=== PATIENT | female | born 1970 | race Hispanic/Latino ===

== ENCOUNTER 2016-05-05 13:47 | Emergency (ER) | payer OTHER ==
[2016-05-05 14:22] VITALS: BMI 42.7
[2016-05-05 14:26] VITALS: TEMP 97.9; O2SAT 98
[2016-05-05] MEDS ORDERED: Sodium Chloride 0.9% 1,000 ML IV STA (14:43)
--- NOTE | 2016-05-05 14:53 | ED PDOC ---
Arrival/HPI - General Chief Complaint: Dizziness/Lightheaded Time Seen by Provider: 05/05/16 14:33 Historian: Patient - History of Present Illness Narrative History of Present Illness (Text): 05/05/16 14:51 45yo female with no PMHX present with complaint of positional dizziness x4days. States dizziness is usually with flexion of her head, or when she suddenly turn laterally while laying down. she admits to tinnitus few days that resolved. States she recently had URI symptoms that resolved. +Nausea. Denies fever, chills, chest pain, SOB, focal weakness, vomiting, diarrhea, diaphoresis, LE edema, calf pain, any other complaint. Past Medical History - Provider Review Nursing Documentation Reviewed: Yes - Infectious Disease Hx of Infectious Diseases: None - Cardiac Hx Cardiac Disorders: No - Pulmonary Hx Respiratory Disorders: No - Neurological Hx Neurological Disorder: No - HEENT Hx HEENT Disorder: No - Renal Hx Renal Disorder: No - Endocrine/Metabolic Hx Endocrine Disorders: No - Hematological/Oncological Hx Blood Transfusions: No - Integumentary Hx Dermatological Disorder: No - Musculoskeletal/Rheumatological Hx Falls: No - Gastrointestinal Hx Gastrointestinal Disorders: Yes Hx Gall Bladder Disease: Yes (GALLSTONES) - Genitourinary/Gynecological Hx Genitourinary Disorders: Yes (MENORRHAGIA) - Psychiatric Hx Psychophysiologic Disorder: No Hx Substance Use: No - Surgical History Hx Cholecystectomy: Yes - Anesthesia Hx Anesthesia Reactions: No Hx Malignant Hyperthermia: No Family/Social History - Physician Review Nursing Documentation Reviewed: Yes Family/Social History: Unknown Family HX Smoking Status: Heavy Smoker > 10 Cigarettes Daily Hx Alcohol Use: No Hx Substance Use: No Allergies/Home Meds Allergies/Adverse Reactions: Allergies No Known Allergies Allergy (Verified 05/05/16 14:22) Home Medications: Home Meds Medication Instructions Recorded Confirmed Multivitamin [One Daily] 1 tab PO DAILY 05/10/15 05/05/16 Unk Med For Thickened Endometrium 0 mg PO DAILY 12/30/15 Aspirin [Adult Low Dose Aspirin EC] 81 mg PO DAILY 05/05/16 05/05/16 Review of Systems - Physician Review All systems were reviewed & negative as marked: Yes - Review of Systems Constitutional: Normal Eyes: Normal ENT: Normal Respiratory: Normal Cardiovascular: Normal Gastrointestinal: Nausea. absent: Abdominal Pain, Constipation, Diarrhea, Vomiting, Hematochezia, Hematemesis Genitourinary Female: Normal Musculoskeletal: Normal Skin: Normal Neurological: Dizziness. absent: Headache, Focal Weakness, Gait Changes, Speech Changes, Facial Droop Endocrine: Normal Hemo/Lymphatic: Normal Psychiatric: Normal Physical Exam Vital Signs Reviewed: Yes Vital Signs Temp Pulse Resp BP Pulse Ox 05/05/16 17:04 65 18 118/71 98 05/05/16 15:24 69 18 124/76 98 05/05/16 14:25 97.9 F 75 17 126/83 98 Temperature: Afebrile Blood Pressure: Normal Pulse: Regular Respiratory Rate: Normal Appearance: Positive for: Well-Appearing, Non-Toxic, Comfortable Pain Distress: None Mental Status: Positive for: Alert and Oriented X 3 - Systems Exam Head: Present: Atraumatic, Normocephalic Pupils: Present: PERRL Extroacular Muscles: Present: EOMI Conjunctiva: Present: Normal Mouth: Present: Moist Mucous Membranes Neck: Present: Normal Range of Motion Respiratory/Chest: Present: Clear to Auscultation, Good Air Exchange. No: Respiratory Distress, Accessory Muscle Use Cardiovascular: Present: Regular Rate and Rhythm, Normal S1, S2. No: Murmurs Abdomen: Present: Normal Bowel Sounds. No: Tenderness, Distention, Peritoneal Signs Back: Present: Normal Inspection Upper Extremity: Present: Normal Inspection. No: Cyanosis, Edema Lower Extremity: Present: Normal Inspection. No: Edema Neurological: Present: GCS=15, CN II-XII Intact, Speech Normal, Motor Func Grossly Intact, Normal Sensory Function, Normal Cerebellar Funct, Norm Deep Tendon Reflexes, Gait Normal, Memory Normal, Normal 2Pt Descrimination, Other ( No focal neurological deficit) Skin: Present: Warm, Dry, Normal Color. No: Rashes Psychiatric: Present: Alert, Oriented x 3, Normal Insight, Normal Concentration Medical Decision Making ED Course and Treatment: 05/05/16 16:53 PT in ED for stated history. she was hemodynamically stable and in no distress ehile in ED. She was not orthostatic. Lab was unremarkable. Symptoms likely Vertigo. Result was DC with the pt. her symptoms improved in ED with antivert. She will be DC home with same medication. Referred to her PMD/Neuro. TRT ER for any new or worsening symptoms - Lab Interpretations Lab Results: 05/05/16 15:45 05/05/16 15:45 Lab Results 05/05/16 15:45: WBC 8.2, RBC 4.52, Hgb 13.8, Hct 39.7, MCV 87.8, MCH 30.5, MCHC 34.8, RDW 13.2, Plt Count 269, MPV 9.1, Gran % 63.9, Lymph % (Auto) 27.6, Worth % (Auto) 6.3 H, Eos % (Auto) 1.7, Baso % (Auto) 0.5, Gran # 5.26, Lymph # 2.3, Worth # 0.5, Eos # 0.1, Baso # 0.04, PT 10.0, INR 0.93, APTT 25.7, Sodium 138, Potassium 3.9, Chloride 105, Carbon Dioxide 26, Anion Gap 11, BUN 10, Creatinine 0.6, Est GFR ( Amer) > 60, Est GFR (Non-Af Amer) > 60, Random Glucose 71, Calcium 9.0, Total Bilirubin 0.4, AST 24, ALT 23, Alkaline Phosphatase 68, Lactate Dehydrogenase 479, Total Creatine Kinase 74, Troponin I < 0.01, Total Protein 7.2, Albumin 4.1, Globulin 3.2, Albumin/Globulin Ratio 1.3 05/05/16 15:27: Urine Color Yellow, Urine Appearance Clear, Urine pH 6.0, Ur Specific [place] 1.010, Urine Protein Negative, Urine Glucose (UA) Negative, Urine Ketones Negative, Urine Blood Negative, Urine Nitrate Negative, Urine Bilirubin Negative, Urine Urobilinogen 0.2, Ur Leukocyte Esterase Negative 05/05/16 15:15: POC Glucose (mg/dL) 66 - EKG Interpretation Interpreted by ED Physician: Yes (NSR @61bpm) - Medication Orders Current Medication Orders: Discontinued Medications Sodium Chloride (Sodium Chloride 0.9%) 1,000 mls @ 999 mls/hr IV .Q1H1M STA Stop: 05/05/16 15:43 Last Admin: 05/05/16 15:46 Dose: 999 MLS/HR eMAR Start Stop Document 05/05/16 15:46 HI (Rec: 05/05/16 15:46 [place] [facility] [id number]) Intravenous Solution Start Date 05/05/16 Start Time 15:46 End Date 05/05/16 End time 16:46 Total Infusion Time 60 Meclizine HCl (Antivert) 25 mg PO STAT STA Stop: 05/05/16 14:44 Last Admin: 05/05/16 15:46 Dose: 25 MG Ondansetron HCl (Zofran Inj) 4 mg IVP STAT STA Stop: 05/05/16 14:44 Last Admin: 05/05/16 15:46 Dose: 4 MG IVP Administration Document 05/05/16 15:46 HI (Rec: 05/05/16 15:46 HI [facility] [id number]) Charges for Administration # of IVP Administrations 1 Disposition/Present on Arrival - Present on Arrival Any Indicators Present on Arrival: No History of DVT/PE: No History of Uncontrolled Diabetes: No Urinary Catheter: No History of Decub. Ulcer: No History Surgical Site Infection Following: None - Disposition Have Diagnosis and Disposition been Completed?: Yes Diagnosis: Vertigo Disposition: HOME/ ROUTINE Disposition Time: 16:55 Patient Plan: Discharge Patient Problems: Current Active Problems Problem Status Diagnosed Cholelithiasis Acute Condition: STABLE Discharge Instructions (ExitCare): Vertigo (ED) Additional Instructions: Follow up with your doctor/Neurologist Return to ED for any new or worsening symptoms Prescriptions: Meclizine [Meclizine*] 25 mg PO Q6 #15 tab Referrals: Joshua Tompkins MD [Primary Care Provider] - Follow up with primary Tiny Tanner MD [Staff Provider] - Follow up with primary
[2016-05-05 15:24] VITALS: RESP 18
[2016-05-05 15:47] LABS: URINE BILIRUBIN NEGATIVE (NEGATIVE); URINE BLOOD NEGATIVE (NEGATIVE); URINE GLUCOSE (UA) NEGATIVE (NEGATIVE); URINE KETONE NEGATIVE (NEGATIVE); URINE LEUKOCYTE ESTERASE NEGATIVE Leu/uL (NEGATIVE); URINE PROTEIN NEGATIVE mg/dL (<30 mg/dL); URINE UROBILINOGEN 0.2 E.U./dL (<1 E.U./dL)
[2016-05-05 15:53] LABS: URINE APPEARANCE CLEAR (CLEAR); URINE COLOR YELLOW (YELLOW)
[2016-05-05 15:53] LABS: ADD MANUAL DIFF? NO
[2016-05-05 16:01] LABS: BASO # 0.04 K/mm3 (0.0-2.0); BASO % 0.5 % (0.0-3.0); EOS # 0.1 (0.0-0.7); EOS % 1.7 % (1.5-5.0); GRAN # 5.26 (1.4-6.5); GRAN % 63.9 % (50.0-68.0); HEMATOCRIT 39.7 % (36.0-48.0); LYMPH # 2.3 (1.2-3.4); LYMPH % 27.6 % (22.0-35.0); MEAN CELL VOLUME 87.8 fL (80.0-105.0); MEAN CORPUSCULAR HEMOGLOBIN 30.5 pg (25.0-35.0); MEAN CORPUSCULAR HGB CONC 34.8 g/dl (31.0-37.0); MEAN PLATELET VOLUME 9.1 fl (7.0-11.0); MONO # 0.5 (0.1-0.6); MONO % 6.3 % (1.0-6.0); PLATELET COUNT 269 10^3/uL (120.0-450.0); RED CELL DISTRIBUTION WIDTH 13.2 % (11.5-14.5); WHITE BLOOD COUNT 8.2 10^3/ul (4.5-11.0)
[2016-05-05 16:08] LABS: ALB/GLOB RATIO 1.3 (1.1-1.8); ALKALINE PHOSPHATASE 68 U/L (38-133); ALT/SGPT 23 U/L (7-56); AST/SGOT 24 U/L (15-39); BILIRUBIN,TOTAL 0.4 mg/dL (0.2-1.3); BLOOD UREA NITROGEN 10 mg/dL (7-21); CARBON DIOXIDE 26 mmol/L (21-33); CHLORIDE 105 mmol/L (98-107); GFR AFRICAN-AMERICAN > 60; GLUCOSE,RANDOM 71 mg/dL (70-110); INR 0.93 (0.93-1.08); PARTIAL THROMBOPLASTIN TIME 25.7 Seconds (23.7-30.8); POTASSIUM 3.9 mmol/L (3.6-5.0); SODIUM 138 mmol/L (132-148); TOTAL PROTEIN 7.2 g/dL (5.8-8.3)
[2016-05-05 16:19] LABS: TROPONIN I < 0.01 ng/mL
[2016-05-05 17:05] VITALS: BP 118/71; PULSE 65
--- NOTE | 2016-05-05 20:54 | CARD ---
APPROVED REPORT EKG Measurement Heart [id number] <Conclusion> Normal sinus rhythm Normal ECG
== END 2016-05-05 17:24 | disposition home or self-care (01) ==
LOC: ED 13:47
DX: R42 Dizziness and giddiness (principal); F17.210 Nicotine dependence, cigarettes, uncomplicated
CPT/HCPCS: 80053; 81003; 82550; 82948; 83615; 84484; 85025; 85610; 85730; 93005; 96361; 96374; 99285; J2405; J7040